=== PATIENT | female | born 1970 | race Caucasian/White ===

== ENCOUNTER 2017-07-29 10:31 | Emergency (ER) | payer OTHER ==
[~2017-07-29] VITALS: Ht 162.6 cm; Wt 72.6 kg
[2017-07-29 10:42] VITALS: BP 133/83
[2017-07-29] MEDS ORDERED: ONDANSETRON ODT 4 MG PO ONE (11:30)
[2017-07-29] MEDS ORDERED: MECLIZINE CHEWABLE 25 MG TAB PO ONE (11:30)
[2017-07-29] MEDS ORDERED: KETOROLAC 30 MG/1 ML IM ONE (11:30)
[2017-07-29] MEDS ORDERED: ONDANSETRON ODT 4 MG ONE (11:30)
[2017-07-29] MEDS ORDERED: KETOROLAC 30 MG/1 ML ONE (11:30)
[2017-07-29] MEDS ORDERED: MECLIZINE CHEWABLE 25 MG TAB ONE (11:31)
[2017-07-29 11:32] LABS: BASOPHILS # (AUTO) 0.04 x10^3/uL (0-0.1); BASOPHILS % (AUTO) 0 % (0-1); EOSINOPHILS # (AUTO) 0.17 x10^3/uL (0-0.4); EOSINOPHILS % (AUTO) 2 % (1-7); LYMPHOCYTES # (AUTO) 2.58 x10^3/uL (1-3.4); LYMPHOCYTES % (AUTO) 31 % (22-44); MD NO; MEAN CORPUSCULAR HEMOGLOBIN 30.5 pg (27.0-34.8); MEAN CORPUSCULAR HGB CONC 33.7 g/dL (32.4-35.8); MEAN CORPUSCULAR VOLUME 90.4 fL (80-100); MEAN PLATELET VOLUME 8.6 fL (7.4-10.4); MONOCYTES # (AUTO) 0.63 x10^3/uL (0.2-0.8); MONOCYTES % (AUTO) 8 % (2-9); NEUTROPHILS # (AUTO) 4.97 x10^3/uL (1.8-6.8); NEUTROPHILS % (AUTO) 59 % (42-75); PLATELET COUNT 241 x10^3/uL (130-400); RED BLOOD COUNT 4.87 x10^6/uL (3.82-5.3); RED CELL DISTRIBUTION WIDTH 13.7 % (9.6-15.2)
[2017-07-29 11:46] LABS: ALBUMIN 3.7 g/dL (3.4-5.0); ANION GAP 6 mmol/L (5-15); CALCIUM 8.9 mg/dL (8.5-10.1); CHLORIDE 109 mmol/L (98-107); CREATININE 0.78 mg/dL (0.55-1.02)
== END 2017-07-29 13:45 | disposition home or self-care (01) ==
LOC: ED 13:39
DX: R42 Dizziness and giddiness (principal); J44.9 Chronic obstructive pulmonary disease, unspecified; Z88.0 Allergy status to penicillin
CPT/HCPCS: 36415; 70551; 80048; 82040; 85025; 93005; 96372; 99285; J1885; Q0162

== ENCOUNTER 2018-03-21 12:54 | Emergency (ER) | payer OTHER ==
[~2018-03-21] VITALS: Ht 162.6 cm; Wt 68.9 kg
[2018-03-21 12:59] VITALS: BP 145/79
[2018-03-21] MEDS ORDERED: KETOROLAC 30 MG/1 ML ONE (14:51)
[2018-03-21] MEDS ORDERED: KETOROLAC 30 MG/1 ML IM ONE (15:00)
== END 2018-03-21 15:20 | disposition home or self-care (01) ==
LOC: ED 14:37
DX: S00.83XA Contusion of other part of head, initial encounter (principal); S00.12XA Contusion of left eyelid and periocular area, initial encounter; S00.11XA Contusion of right eyelid and periocular area, initial encounter; S10.93XA Contusion of unspecified part of neck, initial encounter; S80.01XA Contusion of right knee, initial encounter; F17.210 Nicotine dependence, cigarettes, uncomplicated; Y04.0XXA Assault by unarmed brawl or fight, initial encounter; Y93.89 Activity, other specified; Y92.098 Other place in other non-institutional residence as the place of occurrence of the external cause; Y99.8 Other external cause status
CPT/HCPCS: 29505; 70450; 70486; 72125; 73564; 96372; 99284; J1885

== ENCOUNTER 2018-07-03 10:40 | Emergency (ER) | payer OTHER ==
[~2018-07-03] VITALS: Ht 162.6 cm; Wt 68.6 kg
[2018-07-03 10:43] VITALS: BP 119/80
== END 2018-07-03 11:51 | disposition home or self-care (01) ==
LOC: ED 11:39
DX: S93.491A Sprain of other ligament of right ankle, initial encounter (principal); S90.31XA Contusion of right foot, initial encounter; G89.29 Other chronic pain; J44.9 Chronic obstructive pulmonary disease, unspecified; F17.200 Nicotine dependence, unspecified, uncomplicated; W01.0XXA Fall on same level from slipping, tripping and stumbling without subsequent striking against object, initial encounter; Y93.89 Activity, other specified; Y92.89 Other specified places as the place of occurrence of the external cause; Y99.8 Other external cause status
CPT/HCPCS: 99283

== ENCOUNTER 2018-09-08 10:06 | Emergency (ER) | payer OTHER ==
[~2018-09-08] VITALS: Ht 162.6 cm; Wt 72.0 kg
[2018-09-08] MEDS ORDERED: KETOROLAC 30 MG/1 ML IM ONE (11:00)
[2018-09-08] MEDS ORDERED: KETOROLAC 30 MG/1 ML ONE (11:08)
--- NOTE | 2018-09-08 11:42 | NUR ---
PT STATES TORADOL WAS EFFECTIVE FOR BACK PAIN. LABS DRAWN. BLANKET PROVIDED TO PT, POC RV'WD. DAUGHTER AT BS.
[2018-09-08 12:01] LABS: BASOPHILS # (AUTO) 0.02 x10^3/uL (0-0.1); BASOPHILS % (AUTO) 0 % (0-1); EOSINOPHILS # (AUTO) 0.18 x10^3/uL (0-0.4); EOSINOPHILS % (AUTO) 2 % (1-7); LYMPHOCYTES % (AUTO) 29 % (22-44); MD NO; MEAN CORPUSCULAR HEMOGLOBIN 30.1 pg (27.0-34.8); MEAN CORPUSCULAR HGB CONC 33.6 g/dL (32.4-35.8); MEAN CORPUSCULAR VOLUME 89.5 fL (80-100); MEAN PLATELET VOLUME 9.1 fL (7.4-10.4); MONOCYTES # (AUTO) 0.47 x10^3/uL (0.2-0.8); MONOCYTES % (AUTO) 6 % (2-9); NEUTROPHILS # (AUTO) 5.36 x10^3/uL (1.8-6.8); NEUTROPHILS % (AUTO) 63 % (42-75); PLATELET COUNT 247 x10^3/uL (130-400); RED BLOOD COUNT 4.54 x10^6/uL (3.82-5.3); RED CELL DISTRIBUTION WIDTH 13.3 % (9.6-15.2)
[2018-09-08 12:04] LABS: ALBUMIN 3.3 g/dL (3.4-5.0); ANION GAP 6 mmol/L (5-15); CALCIUM 8.8 mg/dL (8.5-10.1); CHLORIDE 114 mmol/L (98-107)
[2018-09-08 12:11] LABS: ALANINE AMINOTRANSFERASE 20 U/L (12-78); ALKALINE PHOSPHATASE 78 U/L (45-117); BILIRUBIN,TOTAL 0.5 mg/dL (0.2-1.0); CREATININE 0.73 mg/dL (0.55-1.02); TOTAL PROTEIN 6.6 g/dL (6.4-8.2)
[2018-09-08 12:45] LABS: MICROSCOPIC NOT IND
[2018-09-08 12:48] LABS: CULTURE INDICATED? NO
[2018-09-08 13:50] VITALS: BP 98/48
--- NOTE | 2018-09-08 13:50 | NUR ---
D/C INSTRUCTIONS, MEDS, & F/U APPT RV'WD WITH PT, SHE VERBALIZES UNDERSTANDING. RX GIVEN X2. PT AMBULATED OUT OF ED WITH DAUGHTER WITHOUT DIFFICULTY.
== END 2018-09-08 13:52 | disposition home or self-care (01) ==
LOC: ED 10:42
DX: R10.9 Unspecified abdominal pain (principal); J44.9 Chronic obstructive pulmonary disease, unspecified; F17.200 Nicotine dependence, unspecified, uncomplicated
CPT/HCPCS: 36415; 71045; 80053; 81003; 83690; 84703; 85025; 93005; 96372; 99284; J1885

== ENCOUNTER 2021-02-13 14:01 | Emergency (ER) | payer OTHER ==
[~2021-02-13] VITALS: Ht 162.6 cm; Wt 87.3 kg
--- NOTE | 2021-02-13 14:20 | NUR ---
bar host: [facility] report in triage pt called 911 and when [facility] arrived on scene pt was c/o N/V. Iv wa palced and pt was medicated with 4mg Zofran. pt had EKG on scene. pt became verbally aggressive with [facility] staff and refused transport. pt was returned to her home per her request ptthen called 911 again and the crew returned to scene. pt continued to be verbally abusive to [facility] transport staff and reused all tx [employer]
--- NOTE | 2021-02-13 14:22 | NUR ---
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
--- NOTE | 2021-02-13 14:51 | NUR ---
report received from Leilani AVERY, assuming care at this time
[2021-02-13] MEDS ORDERED: ONDANSETRON 2MG/ML, 2ML ONE (14:52)
[2021-02-13] MEDS ORDERED: FAMOTIDINE 20 MG/2 ML ONE (14:52)
[2021-02-13] MEDS ORDERED: SODIUM CHLORIDE FLUSH 10ML SYR IVF ONE (15:00)
[2021-02-13] MEDS ORDERED: FAMOTIDINE 20 MG/2 ML IVPush ONE (15:00)
[2021-02-13] MEDS ORDERED: ONDANSETRON 2MG/ML, 2ML IVPush ONE (15:00)
[2021-02-13] MEDS ORDERED: SODIUM CHLORIDE 0.9% 1,000ML IVBOLUS ONE ×2 (15:00→17:00)
--- NOTE | 2021-02-13 15:14 | NUR ---
PIV placed, pt medicated per order, tolerated well. fluids infusing, nadn.
[2021-02-13 15:30] LABS: BASOPHILS % (AUTO) 0 % (0-1); EOSINOPHILS % (AUTO) 0 % (1-7); LYMPHOCYTES % (AUTO) 12 % (22-44); MEAN CORPUSCULAR HEMOGLOBIN 29.5 pg (27.0-34.8); MEAN CORPUSCULAR HGB CONC 33.6 g/dL (32.4-35.8); MEAN PLATELET VOLUME 8.6 fL (7.4-10.4); MONOCYTES % (AUTO) 4 % (2-9); NEUTROPHILS % (AUTO) 84 % (42-75); PLATELET COUNT 285 x10^3/uL (130-400); RED BLOOD COUNT 5.02 x10^6/uL (3.82-5.3); RED CELL DISTRIBUTION WIDTH 13.8 % (9.6-15.2)
[2021-02-13 15:50] LABS: ANION GAP 11 mmol/L (5-15); CALCIUM 9.1 mg/dL (8.5-10.1); CHLORIDE 110 mmol/L (98-107)
[2021-02-13 15:51] LABS: ALANINE AMINOTRANSFERASE 22 U/L (12-78); ALBUMIN 3.5 g/dL (3.4-5.0); ALKALINE PHOSPHATASE 81 U/L (45-117); BILIRUBIN,TOTAL 0.5 mg/dL (0.2-1.0); CREATININE 0.91 mg/dL (0.55-1.02); TOTAL PROTEIN 7.4 g/dL (6.4-8.2)
--- NOTE | 2021-02-13 17:06 | NUR ---
pt dry heaving in bed, no emesis. 2nd bag IVF infusing, vss.
[2021-02-13 17:38] VITALS: BP 145/78
--- NOTE | 2021-02-13 18:13 | NUR ---
pt tolerating po fluids, awaiting lab redraw results and dispo
[2021-02-13 18:18] LABS: ALBUMIN 3.4 g/dL (3.4-5.0); ANION GAP 9 mmol/L (5-15); CALCIUM 8.3 mg/dL (8.5-10.1); CHLORIDE 114 mmol/L (98-107); CREATININE 0.81 mg/dL (0.55-1.02)
[2021-02-13] MEDS ORDERED: MAALOX/HYOSCYAMINE/LIDOCAINE 45 ML BTL PO ONE (19:30)
[2021-02-13] MEDS ORDERED: MAALOX/HYOSCYAMINE/LIDOCAINE 45 ML BTL ONE (19:39)
[2021-02-13 19:58] LABS: MICROSCOPIC INDICATED
--- NOTE | 2021-02-13 20:16 | NUR ---
pt educated on dc instructions, verbalized understanding, ambulatory to dc desk with steady gait.
== END 2021-02-13 20:29 | disposition home or self-care (01) ==
LOC: ED 14:31
DX: R11.2 Nausea with vomiting, unspecified (principal); Z20.822 Contact with and (suspected) exposure to COVID-19; R05 Cough; R00.1 Bradycardia, unspecified; R10.9 Unspecified abdominal pain; J44.9 Chronic obstructive pulmonary disease, unspecified; F17.200 Nicotine dependence, unspecified, uncomplicated; Z88.0 Allergy status to penicillin; Z88.5 Allergy status to narcotic agent; Z88.6 Allergy status to analgesic agent; Z88.1 Allergy status to other antibiotic agents
CPT/HCPCS: 36415; 74022; 80048; 80053; 81001; 82040; 83690; 85025; 87086; 93005; 96361; 96374; 96375; 99285; J2405; J7030; U0003; U0005